=== PATIENT | male | born 1985 | race Caucasian/White ===

== ENCOUNTER 2018-01-19 21:50 | Inpatient (IN) | payer MEDICAID ==
[2018-01-20 00:29] LABS: ADD MAN DIFF? NO
[2018-01-20 00:33] LABS: BASOPHILS % 0.8 % (0.0-2.0); EOSINOPHILS # 0.1 10^3/ul (0.0-0.5); EOSINOPHILS % 1.4 % (0.0-7.0); HEMATOCRIT 36.9 % (42.0-52.0); HEMOGLOBIN 11.7 g/dl (14.0-18.0); LYMPHOCYTES # 1.4 10^3/ul (0.8-2.9); LYMPHOCYTES % 28.1 % (15.0-51.0); MEAN CORPUSCULAR HEMOGLOBIN 24.6 pg (29.0-33.0); MEAN CORPUSCULAR HGB CONC 31.7 g/dl (32.0-37.0); MEAN CORPUSCULAR VOLUME 77.5 fl (82.0-101.0); MEAN PLATELET VOLUME 8.7 fl (7.4-10.4); MONOCYTE # 0.6 10^3/ul (0.3-0.9); MONOCYTES % 11.6 % (0.0-11.0); NEUTROPHIL # 2.9 10^3/ul (1.6-7.5); NEUTROPHILS % 57.9 % (39.0-77.0); PLATELET COUNT 386 10^3/UL (140-415); RED BLOOD COUNT 4.76 10^6/ul (4.70-6.10); RED CELL DISTRIBUTION WIDTH 19.2 % (11.5-14.5)
[2018-01-20 00:39] LABS: AMPHETAMINE/METHAMPHETAMINE Negative (NEGATIVE); BARBITURATES Negative (NEGATIVE); BENZODIAZEPINES Positive (NEGATIVE); CANNABINOIDS Negative (NEGATIVE); COCAINE Negative (NEGATIVE)
[2018-01-20 00:40] LABS: OPIATES Positive (NEGATIVE)
[2018-01-20 00:54] LABS: ALANINE AMINOTRANSFERASE 98 IU/L (13-69); ALBUMIN 4.3 g/dl (3.3-4.9); ALBUMIN/GLOBULIN RATIO 1.26; ALKALINE PHOSPHATASE 87 IU/L (42-121); ANION GAP 15 (8-16); ASPARTATE AMINO TRANSFERASE 75 IU/L (15-46); BILIRUBIN,INDIRECT 0.4 mg/dl (0-1.1); BILIRUBIN,TOTAL 0.4 mg/dl (0.2-1.3); BLOOD UREA NITROGEN 10 mg/dl (7-20); CALCIUM 9.5 mg/dl (8.4-10.2); CARBON DIOXIDE 26 mmol/L (21-31); CHLORIDE 103 mmol/L (97-110); CREATININE 0.94 mg/dl (0.61-1.24); GLUCOSE 87 mg/dl (70-220); LIPASE 17 U/L (23-300); POTASSIUM 3.8 mmol/L (3.5-5.1); SODIUM 140 mmol/L (135-144); TOTAL PROTEIN 7.7 g/dl (6.1-8.1)
[2018-01-20 00:59] LABS: ETHANOL < 10.0 mg/dl
[2018-01-20 01:03] LABS: TROPONIN-I < 0.012 ng/ml (0.000-0.120)
[2018-01-20 01:06] LABS: INR 0.99; PROTIME 13.2 Sec (11.9-14.9)
[2018-01-20 01:07] LABS: PARTIAL THROMBOPLASTIN TIME 32.8 Sec (25.0-35.0)
[2018-01-20] MEDS ORDERED: NITROGLYCERIN (SL) 0.4 MG TAB SL (03:00)
[2018-01-20] MEDS ORDERED: NACL 0.9% 3 ML SYG IV (03:00)
[2018-01-20] MEDS ORDERED: ACETAMINOPHEN 325 MG TAB PO (03:00)
[2018-01-20] MEDS: SOD CHLORIDE 0.9% 1,000 ML IV ×2 (04:00→15:47)
[2018-01-20] MEDS: PANTOPRAZOLE 40 MG INJ IV ×2 (04:12→18:15)
[2018-01-20] MEDS: morphine 2 MG INJ IV ×5 (04:16→22:15)
[2018-01-20] MEDS: ONDANSETRON 4 MG INJ IV ×3 (04:16→18:15)
[2018-01-20] MEDS ORDERED: PANTOPRAZOLE 40 MG INJ IV (06:00)
[2018-01-20 07:34] LABS: ADD MAN DIFF? NO
[2018-01-20 07:37] LABS: WHITE BLOOD COUNT 3.6 10^3/ul (4.8-10.8)
[2018-01-20 07:37] LABS: BASOPHILS % 0.8 % (0.0-2.0); EOSINOPHILS # 0.1 10^3/ul (0.0-0.5); EOSINOPHILS % 1.7 % (0.0-7.0); HEMATOCRIT 33.8 % (42.0-52.0); HEMOGLOBIN 10.8 g/dl (14.0-18.0); LYMPHOCYTES # 1.3 10^3/ul (0.8-2.9); LYMPHOCYTES % 35.3 % (15.0-51.0); MEAN CORPUSCULAR HEMOGLOBIN 24.5 pg (29.0-33.0); MEAN CORPUSCULAR VOLUME 76.6 fl (82.0-101.0); MEAN PLATELET VOLUME 8.8 fl (7.4-10.4); MONOCYTE # 0.5 10^3/ul (0.3-0.9); MONOCYTES % 13.9 % (0.0-11.0); NEUTROPHIL # 1.7 10^3/ul (1.6-7.5); PLATELET COUNT 354 10^3/UL (140-415); RED BLOOD COUNT 4.41 10^6/ul (4.70-6.10)
[2018-01-20 07:57] LABS: HEMOGLOBIN A1C 5.9 % (0-5.9)
[2018-01-20 08:04] LABS: IRON 54 ug/dl (35-150)
[2018-01-20 08:08] LABS: ALANINE AMINOTRANSFERASE 95 IU/L (13-69); ALBUMIN 3.7 g/dl (3.3-4.9); ALBUMIN/GLOBULIN RATIO 1.37; ALKALINE PHOSPHATASE 76 IU/L (42-121); ANION GAP 13 (8-16); ASPARTATE AMINO TRANSFERASE 57 IU/L (15-46); BILIRUBIN,INDIRECT 0.4 mg/dl (0-1.1); BILIRUBIN,TOTAL 0.4 mg/dl (0.2-1.3); BLOOD UREA NITROGEN 11 mg/dl (7-20); CALCIUM 9.4 mg/dl (8.4-10.2); CARBON DIOXIDE 28 mmol/L (21-31); CHLORIDE 104 mmol/L (97-110); CHOL/HDL RATIO 5.2 RATIO; CHOLESTEROL 130 mg/dl (100-200); CREATININE 0.86 mg/dl (0.61-1.24); GLUCOSE 88 mg/dl (70-220); HDL CHOLESTEROL 25 mg/dl (28-63); LDL CHOLESTEROL,CALCULATED 80 mg/dl; MAGNESIUM 1.9 mg/dl (1.7-2.5); POTASSIUM 3.6 mmol/L (3.5-5.1); SODIUM 141 mmol/L (135-144); TOTAL PROTEIN 6.4 g/dl (6.1-8.1); TRIGLYCERIDES 125 mg/dl (0-149)
[2018-01-20 08:12] LABS: CREATINE KINASE 64 IU/L (23-200)
[2018-01-20 08:13] LABS: % IRON SATURATION 16 % SAT (22-52); TOTAL IRON BINDING CAPACITY 332 ug/dl (241-421)
[2018-01-20 08:16] LABS: CK INDEX 0.3; CK-MB < 0.22 ng/ml (0.0-2.4); TROPONIN-I < 0.012 ng/ml (0.000-0.120)
[2018-01-20] MEDS ORDERED: DIVALPROEX (ER) 500 MG TAB PO (09:30)
[2018-01-20 11:54] LABS: ADD MAN DIFF? NO; HAAIG REFLEX REFLEX FILED
[2018-01-20 12:07] LABS: WHITE BLOOD COUNT 3.1 10^3/ul (4.8-10.8)
[2018-01-20 12:07] LABS: BASOPHILS % 0.6 % (0.0-2.0); EOSINOPHILS # 0.1 10^3/ul (0.0-0.5); EOSINOPHILS % 1.6 % (0.0-7.0); HEMATOCRIT 34.8 % (42.0-52.0); HEMOGLOBIN 11.4 g/dl (14.0-18.0); LYMPHOCYTES % 33.2 % (15.0-51.0); MEAN CORPUSCULAR HEMOGLOBIN 25.3 pg (29.0-33.0); MEAN CORPUSCULAR HGB CONC 32.8 g/dl (32.0-37.0); MEAN CORPUSCULAR VOLUME 77.3 fl (82.0-101.0); MEAN PLATELET VOLUME 8.8 fl (7.4-10.4); MONOCYTE # 0.4 10^3/ul (0.3-0.9); MONOCYTES % 13.5 % (0.0-11.0); NEUTROPHIL # 1.6 10^3/ul (1.6-7.5); NEUTROPHILS % 50.8 % (39.0-77.0); PLATELET COUNT 353 10^3/UL (140-415); RED CELL DISTRIBUTION WIDTH 18.6 % (11.5-14.5)
[2018-01-20 12:19] LABS: CREATINE KINASE 64 IU/L (23-200)
[2018-01-20 12:29] LABS: CK INDEX 0.3; CK-MB < 0.22 ng/ml (0.0-2.4); TROPONIN-I < 0.012 ng/ml (0.000-0.120)
[2018-01-20 12:46] LABS: HEPATITIS B SURFACE ANTIGEN NEGATIVE (NEGATIVE)
[2018-01-20 13:04] LABS: HEPATITIS B CORE ANTIBODY NEGATIVE (NEGATIVE); HEPATITIS C VIRAL ANTIBODY NEGATIVE (NEGATIVE)
[2018-01-20 14:31] LABS: OCCULT BLOOD STOOL POSITIVE (NEGATIVE)
[2018-01-20] MEDS: SOD FERRIC GLUC COMPLX 125 MG in SOD CHLORIDE 0.9% 100 ML IVPB (16:29)
[2018-01-20] MEDS: SUCRALFATE (100 MG/ML) 10ML CUP PO ×2 (17:35→20:49)
[2018-01-20 19:08] LABS: VALPROATE < 10 ug/ml (50-100)
[2018-01-21] MEDS: morphine 2 MG INJ IV ×6 (01:28→21:54)
[2018-01-21] MEDS: OLANZAPINE 2.5 MG TAB PO (01:41)
[2018-01-21] MEDS: ONDANSETRON 4 MG INJ IV ×3 (01:41→18:02)
[2018-01-21] MEDS: PANTOPRAZOLE 40 MG INJ IV ×2 (05:30→18:04)
[2018-01-21 06:52] LABS: ADD MAN DIFF? NO
[2018-01-21 06:59] LABS: WHITE BLOOD COUNT 3.7 10^3/ul (4.8-10.8)
[2018-01-21 06:59] LABS: BASOPHILS % 0.8 % (0.0-2.0); EOSINOPHILS # 0.1 10^3/ul (0.0-0.5); EOSINOPHILS % 1.3 % (0.0-7.0); HEMATOCRIT 35.2 % (42.0-52.0); LYMPHOCYTES # 1.4 10^3/ul (0.8-2.9); LYMPHOCYTES % 36.7 % (15.0-51.0); MEAN CORPUSCULAR HEMOGLOBIN 24.4 pg (29.0-33.0); MEAN CORPUSCULAR HGB CONC 31.3 g/dl (32.0-37.0); MEAN PLATELET VOLUME 8.9 fl (7.4-10.4); MONOCYTE # 0.5 10^3/ul (0.3-0.9); MONOCYTES % 13.5 % (0.0-11.0); NEUTROPHIL # 1.8 10^3/ul (1.6-7.5); NEUTROPHILS % 47.4 % (39.0-77.0); PLATELET COUNT 360 10^3/UL (140-415); RED BLOOD COUNT 4.51 10^6/ul (4.70-6.10)
[2018-01-21] MEDS: SUCRALFATE (100 MG/ML) 10ML CUP PO ×4 (09:40→21:03)
[2018-01-21 15:07] LABS: RHEUMATOID FACTOR NEGATIVE (NEGATIVE)
[2018-01-21] MEDS: SOD FERRIC GLUC COMPLX 125 MG in SOD CHLORIDE 0.9% 100 ML IVPB (18:02)
[2018-01-21] MEDS: BISACODYL (EC) 5 MG TAB PO (22:09)
[2018-01-21] MEDS: DOCUSATE SODIUM 100 MG CAP PO (22:09)
[2018-01-22] MEDS: morphine 2 MG INJ IV ×7 (01:53→22:49)
[2018-01-22] MEDS: ONDANSETRON 4 MG INJ IV ×3 (01:54→18:47)
[2018-01-22] MEDS: PANTOPRAZOLE 40 MG INJ IV ×2 (05:29→17:37)
[2018-01-22 05:41] LABS: C-REACTIVE PROTEIN < 0.5 mg/dl (0.0-0.9)
[2018-01-22 07:50] LABS: ERYTHROCYTE SEDIMENTATION RATE 5 mm/Hr (0-15)
[2018-01-22] MEDS: SUCRALFATE (100 MG/ML) 10ML CUP PO ×4 (09:58→21:40)
[2018-01-22] MEDS: BISACODYL (EC) 5 MG TAB PO (14:17)
[2018-01-22] MEDS: SOD FERRIC GLUC COMPLX 125 MG in SOD CHLORIDE 0.9% 100 ML IVPB (17:38)
[2018-01-22] MEDS: POLYETHYLENE GLYCOL 3350 119 GM POWDER PO (18:46)
[2018-01-22] MEDS: MAGNESIUM CITRATE 300 ML BTL PO (19:07)
[2018-01-23] MEDS: ONDANSETRON 4 MG INJ IV ×3 (02:58→18:52)
[2018-01-23] MEDS: morphine 2 MG INJ IV ×6 (02:58→22:56)
[2018-01-23 05:08] LABS: ADD MAN DIFF? NO
[2018-01-23 05:21] LABS: BASOPHILS % 0.7 % (0.0-2.0); EOSINOPHILS # 0.1 10^3/ul (0.0-0.5); HEMATOCRIT 35.8 % (42.0-52.0); HEMOGLOBIN 11.4 g/dl (14.0-18.0); LYMPHOCYTES # 1.7 10^3/ul (0.8-2.9); LYMPHOCYTES % 37.2 % (15.0-51.0); MEAN CORPUSCULAR HGB CONC 31.8 g/dl (32.0-37.0); MEAN CORPUSCULAR VOLUME 78.5 fl (82.0-101.0); MEAN PLATELET VOLUME 8.8 fl (7.4-10.4); MONOCYTE # 0.5 10^3/ul (0.3-0.9); MONOCYTES % 11.6 % (0.0-11.0); NEUTROPHIL # 2.2 10^3/ul (1.6-7.5); NEUTROPHILS % 48.1 % (39.0-77.0); PLATELET COUNT 367 10^3/UL (140-415); RED BLOOD COUNT 4.56 10^6/ul (4.70-6.10); RED CELL DISTRIBUTION WIDTH 19.4 % (11.5-14.5)
[2018-01-23 05:21] LABS: WHITE BLOOD COUNT 4.6 10^3/ul (4.8-10.8)
[2018-01-23] MEDS: POLYETHYLENE GLYCOL 3350 119 GM POWDER PO (05:30)
[2018-01-23] MEDS: PANTOPRAZOLE 40 MG INJ IV ×2 (05:30→18:52)
[2018-01-23 06:12] LABS: ANION GAP 10 (8-16); BLOOD UREA NITROGEN 6 mg/dl (7-20); CALCIUM 9.2 mg/dl (8.4-10.2); CARBON DIOXIDE 28 mmol/L (21-31); CHLORIDE 106 mmol/L (97-110); CREATININE 0.79 mg/dl (0.61-1.24); GLUCOSE 100 mg/dl (70-220); POTASSIUM 3.4 mmol/L (3.5-5.1); SODIUM 141 mmol/L (135-144)
[2018-01-23] MEDS: BISACODYL (EC) 5 MG TAB PO (08:08)
[2018-01-23] MEDS: SUCRALFATE (100 MG/ML) 10ML CUP PO ×4 (08:08→20:14)
[2018-01-23] MEDS ORDERED: hydrALAzine 20 MG INJ IV (16:30)
[2018-01-23] MEDS ORDERED: DIPHENHYDRAMINE 50 MG INJ IV (16:30)
[2018-01-23] MEDS ORDERED: FENTAnyl 50 MCG/ML VIAL IV ×2 (16:30)
[2018-01-23] MEDS ORDERED: EPHEDrine SULFATE 50 MG/5 ML SYG IV (16:30)
[2018-01-23] MEDS ORDERED: ONDANSETRON 4 MG INJ IV (16:30)
[2018-01-23] MEDS ORDERED: OXYCODONE/ACETAMINOPHEN (5/325) TAB PO ×2 (16:30)
[2018-01-23] MEDS ORDERED: MEPERIDINE 25 MG INJ IV (16:30)
[2018-01-23] MEDS ORDERED: LABETALOL HCL 20MG INJ IV (16:30)
[2018-01-23] MEDS ORDERED: MIDAZOLAM 1 MG/ML 2 ML INJ IV (16:30)
[2018-01-23] MEDS: FENTAnyl 50 MCG/ML VIAL IV ×2 (16:37→17:37)
[2018-01-23] MEDS: PROPOFOL 80 ML (16:48)
[2018-01-24] MEDS: ONDANSETRON 4 MG INJ IV ×3 (02:57→21:56)
[2018-01-24] MEDS: morphine 2 MG INJ IV ×5 (02:58→20:52)
[2018-01-24 05:06] LABS: ADD MAN DIFF? NO
[2018-01-24 05:13] LABS: WHITE BLOOD COUNT 5.2 10^3/ul (4.8-10.8)
[2018-01-24 05:13] LABS: BASOPHILS % 0.6 % (0.0-2.0); EOSINOPHILS # 0.1 10^3/ul (0.0-0.5); EOSINOPHILS % 1.5 % (0.0-7.0); HEMATOCRIT 34.5 % (42.0-52.0); HEMOGLOBIN 10.8 g/dl (14.0-18.0); LYMPHOCYTES # 1.2 10^3/ul (0.8-2.9); LYMPHOCYTES % 22.6 % (15.0-51.0); MEAN CORPUSCULAR HGB CONC 31.3 g/dl (32.0-37.0); MEAN CORPUSCULAR VOLUME 79.9 fl (82.0-101.0); MEAN PLATELET VOLUME 9.2 fl (7.4-10.4); MONOCYTE # 0.5 10^3/ul (0.3-0.9); MONOCYTES % 10.4 % (0.0-11.0); NEUTROPHIL # 3.3 10^3/ul (1.6-7.5); NEUTROPHILS % 64.3 % (39.0-77.0); POSITIVE DIFF @See below; RED BLOOD COUNT 4.32 10^6/ul (4.70-6.10); RED CELL DISTRIBUTION WIDTH 19.3 % (11.5-14.5)
[2018-01-24 05:23] LABS: PLATELET COUNT 287 10^3/UL (140-415)
[2018-01-24 05:41] LABS: ANION GAP 12 (8-16); BLOOD UREA NITROGEN 7 mg/dl (7-20); CALCIUM 8.7 mg/dl (8.4-10.2); CARBON DIOXIDE 27 mmol/L (21-31); CHLORIDE 106 mmol/L (97-110); CREATININE 0.85 mg/dl (0.61-1.24); GLUCOSE 96 mg/dl (70-220); MAGNESIUM 1.9 mg/dl (1.7-2.5); POTASSIUM 3.5 mmol/L (3.5-5.1); SODIUM 141 mmol/L (135-144)
[2018-01-24] MEDS: PANTOPRAZOLE 40 MG INJ IV ×2 (06:00→18:00)
[2018-01-24] MEDS: SUCRALFATE (100 MG/ML) 10ML CUP PO (09:00)
[2018-01-24] MEDS: SUCRALFATE 1 GM TAB PO ×3 (13:30→20:48)
[2018-01-24 13:31] LABS: ANA SCREEN NEGATIVE (NEGATIVE)
[2018-01-24] MEDS: METOCLOPRAMIDE 10 MG INJ IV (16:35)
[2018-01-24 18:53] LABS: HEMATOCRIT 37.2 % (42.0-52.0); HEMOGLOBIN 11.8 g/dl (14.0-18.0)
[2018-01-25] MEDS: METOCLOPRAMIDE 10 MG INJ IV ×2 (01:03→10:00)
[2018-01-25] MEDS: morphine 2 MG INJ IV ×5 (01:03→18:01)
[2018-01-25] MEDS: OLANZAPINE 2.5 MG TAB PO (02:15)
[2018-01-25] MEDS: ALBUTEROL/IPRATROPIUM (NEB) 3 ML AMP HHN (02:24)
[2018-01-25] MEDS: PANTOPRAZOLE 40 MG INJ IV ×2 (05:43→18:08)
[2018-01-25] MEDS: ONDANSETRON 4 MG INJ IV ×2 (05:43→18:01)
[2018-01-25] MEDS: SUCRALFATE 1 GM TAB PO ×3 (09:00→18:00)
[2018-01-25] MEDS: BISACODYL (EC) 5 MG TAB PO (09:02)
[2018-01-25] MEDS: DOCUSATE SODIUM 100 MG CAP PO (09:02)
[2018-01-25 10:43] LABS: ADD MAN DIFF? NO
[2018-01-25 10:46] LABS: WHITE BLOOD COUNT 3.9 10^3/ul (4.8-10.8)
[2018-01-25 10:46] LABS: EOSINOPHILS # 0.1 10^3/ul (0.0-0.5); EOSINOPHILS % 2.8 % (0.0-7.0); HEMATOCRIT 34.3 % (42.0-52.0); HEMOGLOBIN 10.8 g/dl (14.0-18.0); LYMPHOCYTES % 24.6 % (15.0-51.0); MEAN CORPUSCULAR HEMOGLOBIN 25.1 pg (29.0-33.0); MEAN CORPUSCULAR HGB CONC 31.5 g/dl (32.0-37.0); MEAN CORPUSCULAR VOLUME 79.8 fl (82.0-101.0); MEAN PLATELET VOLUME 8.9 fl (7.4-10.4); MONOCYTE # 0.6 10^3/ul (0.3-0.9); MONOCYTES % 16.1 % (0.0-11.0); NEUTROPHIL # 2.2 10^3/ul (1.6-7.5); NEUTROPHILS % 55.2 % (39.0-77.0); PLATELET COUNT 305 10^3/UL (140-415); RED CELL DISTRIBUTION WIDTH 19.6 % (11.5-14.5)
== END 2018-01-25 18:25 | disposition home or self-care (01) | DRG 378 ==
LOC: MS1 01-23 12:51 → E/R 21:50 → TEL 01-20 02:15
PROC: 0DB98ZX Excision of Duodenum, Via Natural or Artificial Opening Endoscopic, Diagnostic (ICD-10-PCS; principal; 2018-01-23 15:24)
PROC: 0DB68ZX Excision of Stomach, Via Natural or Artificial Opening Endoscopic, Diagnostic (ICD-10-PCS; 2018-01-23 15:24)
PROC: 0DB58ZX Excision of Esophagus, Via Natural or Artificial Opening Endoscopic, Diagnostic (ICD-10-PCS; 2018-01-23 15:24)
PROC: 0DJD8ZZ Inspection of Lower Intestinal Tract, Via Natural or Artificial Opening Endoscopic (ICD-10-PCS; 2018-01-23 15:24)
DX: K92.1 Melena (principal); D62 Acute posthemorrhagic anemia; K92.0 Hematemesis; R07.9 Chest pain, unspecified; F41.8 Other specified anxiety disorders; I10 Essential (primary) hypertension; F31.9 Bipolar disorder, unspecified; R11.2 Nausea with vomiting, unspecified; F43.10 Post-traumatic stress disorder, unspecified; J44.9 Chronic obstructive pulmonary disease, unspecified; D50.9 Iron deficiency anemia, unspecified; W19.XXXA Unspecified fall, initial encounter; Y92.239 Unspecified place in hospital as the place of occurrence of the external cause
CPT/HCPCS: 36415; 71045; 76705; 78278; 80048; 80053; 80061; 80164; 80307; 82270; 82550; 82553; 82728; 83036; 83540; 83690; 83735; 84443; 84484; 85014; 85018; 85025; 85610; 85651; 85730; 86038; 86140; 86430; 86704; 86709; 86803; 86850; 86900; 86901; 87340; 88305; 88312; 88313; 93005; 93306; 94640; 94664; 99285-25